=== PATIENT | male | born 1990 | race Caucasian/White ===

== ENCOUNTER 2023-08-29 14:17 | Emergency (ER) | payer SELFPAY ==
[~2023-08-29] VITALS: Ht 185.4 cm; Wt 81.6 kg
[~2023-08-29 14:17] MED LIST: DOXY-CAPS100 MG PO
[2023-08-29 16:25] VITALS: BP 132/81
== END 2023-08-29 16:33 | disposition home or self-care (01) | DRG 605 ==
LOC: ED 14:17
PROC: 0HCQXZZ Extirpation of Matter from Finger Nail, External Approach (ICD-10-PCS; principal; 2023-08-29)
DX: S60.131A Contusion of right middle finger with damage to nail, initial encounter (principal); W22.8XXA Striking against or struck by other objects, initial encounter; Y99.0 Civilian activity done for income or pay

== ENCOUNTER 2023-09-25 16:52 | Emergency (ER) | payer SELFPAY ==
[~2023-09-25] VITALS: Ht 185.4 cm; Wt 79.3 kg
[2023-09-25] MEDS ORDERED: TRAMADOL HYDROC50 M1 PO (17:17)
[2023-09-25] MEDS ORDERED: PENICILLN VK500 MG PO (17:17)
[2023-09-25 17:22] VITALS: BP 128/65
== END 2023-09-25 17:26 | disposition home or self-care (01) | DRG 159 ==
LOC: ED 16:52
DX: K04.7 Periapical abscess without sinus (principal); K02.9 Dental caries, unspecified; K05.10 Chronic gingivitis, plaque induced

== ENCOUNTER 2024-03-28 16:16 | Emergency (ER) | payer SELFPAY ==
[~2024-03-28] VITALS: Ht 185.4 cm; Wt 75.0 kg
[~2024-03-28 16:16] MED LIST changes: +PENICILLN VK500 MG PO; +TRAMADOL HYDROC50 M1 PO
[2024-03-28 16:30] VITALS: BP 127/83
[2024-03-28] MEDS ORDERED: METHOCARBAMOL500 MG PO (18:10)
[2024-03-28 18:18] VITALS: BP 127/83
== END 2024-03-28 18:36 | disposition home or self-care (01) | DRG 93 ==
LOC: ED 16:16
DX: R20.0 Anesthesia of skin (principal); M50.322 Other cervical disc degeneration at C5-C6 level; M62.838 Other muscle spasm